=== PATIENT | male | born 1995 | race Caucasian/White ===

== ENCOUNTER 2016-12-01 15:06 | Emergency (ER) | payer BC, MEDICAID ==
[~2016-12-01] VITALS: Ht 170.2 cm; Wt 61.9 kg
[2016-12-01 15:07] VITALS: BP 123/78
[2016-12-01 16:08] LABS: BLOOD UREA NITROGEN 17 mg/dL (7-18)
[2016-12-01 16:19] LABS: IS PT STATUS REG ER OR PRE ER? YES
== END 2016-12-01 16:43 | disposition home or self-care (01) ==
LOC: ED 16:37
DX: R07.89 Other chest pain (principal)
CPT/HCPCS: 36415; 71020; 80048; 82040; 84484; 85025; 93005; 93306

== ENCOUNTER → 2018-08-03 | Outpatient (CLI) | payer BC ==
[~2018-08-03] MED LIST: OMNIPAQUE 350 MG/ML, 100ML BOTTLE ONE
== END | disposition home or self-care (01) ==
LOC: RAD 16:54
PROVIDERS: ATTEND Family Medicine
DX: R10.32 Left lower quadrant pain (principal)
CPT/HCPCS: 74177; Q9967

== ENCOUNTER 2020-08-03 23:01 | Emergency (ER) | payer BC ==
[~2020-08-03] VITALS: Ht 170.2 cm; Wt 62.5 kg
[2020-08-03 23:06] VITALS: BP 117/69
[2020-08-04] MEDS ORDERED: FLUORESCEIN OPHTHALMIC 1 MG STRIP ONE (00:14)
[2020-08-04] MEDS ORDERED: PROPARACAINE OPHTH 0.5%, 15ML ONE (00:15)
[2020-08-04] MEDS ORDERED: POLYTRIM OPHTH 10ML RIGHTEYE ONE (00:30)
[2020-08-04] MEDS ORDERED: BACITRACIN/POLYMYXIN B OPHTH OINT 3.5GM RIGHTEYE ONE (09:00)
== END 2020-08-04 01:05 | disposition home or self-care (01) ==
LOC: ED 08-04 00:01
DX: H10.31 Unspecified acute conjunctivitis, right eye (principal)
CPT/HCPCS: 99283